=== PATIENT | male | born 2000 | race Hispanic/Latino ===

== ENCOUNTER 2019-12-09 17:27 | Emergency (ER) | payer OTHER ==
[2019-12-09] MEDS ORDERED: KETOROLAC TROMETHAMINE 60 MG/2 ML VIAL ONE (17:42)
[2019-12-09] MEDS ORDERED: DEXAMETHASONE SOD PHOSPHATE 4 MG/ML 1ML VIAL ONE (18:06)
== END 2019-12-09 19:11 | disposition home or self-care (01) ==
LOC: EDH 17:27
DX: J02.9 Acute pharyngitis, unspecified (principal); Z88.0 Allergy status to penicillin
CPT/HCPCS: 87880; 96372 ×2; 99284; J1100; J1885

== ENCOUNTER 2020-10-08 10:13 | Emergency (ER) | payer OTHER ==
[~2020-10-08] VITALS: Ht 172.7 cm; Wt 63.5 kg
[2020-10-08 10:15] VITALS: BP 125/78
[2020-10-08 10:16] VITALS: BP 125/78
[2020-10-08] MEDS ORDERED: LIDOCAINE HCL 2% VISCOUS 15 ML UDCUP ONE (12:21)
[2020-10-08] MEDS ORDERED: ONDANSETRON 4MG TABLET PO ONE (12:30)
[2020-10-08] MEDS ORDERED: DICYCLOMINE 20MG (10MG/ML) AMP IM ONE (12:30)
[2020-10-08] MEDS ORDERED: MAG/ALUM/SIMETH 30 ML UDCUP PO ONE (12:30)
[2020-10-08] MEDS ORDERED: FAMOTIDINE 20MG TAB PO ONE (12:30)
[2020-10-08 13:28] LABS: EOSINOPHILS % (AUTO) 0.2 % (0.0-8.0); HEMATOCRIT 44.9 % (42-54); LYMPHOCYTES % (AUTO) 34.8 % (21.0-51.0); MEAN CORPUSCULAR HEMOGLOBIN 27.8 pg (27.0-33.0); MEAN CORPUSCULAR HGB CONC 32.7 g/dL (32.0-36.0); MONOCYTES % (AUTO) 10.2 % (3.0-13.0); NEUTROPHILS % (AUTO) 54.8 % (40.0-77.0); PLATELET COUNT (AUTO) 132 K/uL (130-400); RED BLOOD CELL COUNT(AUTO) 5.28 MIL/uL (4.50-6.20); RED CELL DISTRIBUTION WIDTH 11.8 % (11.0-15.5); WHITE BLOOD COUNT (AUTO) 4.1 K/uL (4.8-10.8)
[2020-10-08 13:42] LABS: CREATININE 0.7 mg/dL (0.5-1.5); POTASSIUM 3.5 mmol/L (3.5-5.1)
[2020-10-08 13:44] LABS: ALBUMIN 4.1 g/dL (3.5-5.0); BILIRUBIN,TOTAL 0.2 mg/dL (0.2-1.0); TOTAL PROTEIN, SERUM 8.2 g/dL (6.0-8.3)
[2020-10-08 14:02] LABS: APPEARANCE,URINE Clear (CLEAR); BILIRUBIN,URINE Negative (NEGATIVE); COLOR,URINE Yellow (YELLOW); GLUCOSE, URINE (UA) Negative (NEGATIVE); KETONES,URINE 15 mg/dL (NEGATIVE); LEUKOCYTE ESTERASE ,URINE Negative (NEGATIVE); NITRATE,URINE Negative (NEGATIVE); OCCULT BLOOD,URINE Negative (NEGATIVE); PROTEIN,URINE POS 1+ mg/dL (NEGATIVE)
[2020-10-08 14:55] LABS: BACTERIA,URINE Few /HPF (None Seen); MUCUS,URINE Few LPF (None Seen); RBC,URINE 0-1 /HPF (0-1); SQUAMOUS EPITHELIAL CELL,UR Rare /HPF (0-2)
[2020-10-08] MEDS ORDERED: LIDOCAINE HCL-MPF 1% 2ML VIAL ONE (15:14)
[2020-10-08] MEDS ORDERED: ONDA4TAB10 PO (15:17)
[2020-10-08] MEDS ORDERED: FAMO-136 PO (15:17)
[2020-10-08] MEDS ORDERED: CEPH500B PO (15:17)
[2020-10-08] MEDS ORDERED: DICY20TA2 PO (15:17)
[2020-10-08] MEDS ORDERED: CEFTRIAXONE 1G VIAL IM ONE (15:30)
== END 2020-10-08 15:22 | disposition home or self-care (01) ==
LOC: EDH 10:13
DX: K29.70 Gastritis, unspecified, without bleeding (principal); N39.0 Urinary tract infection, site not specified; Z79.899 Other long term (current) drug therapy; Z88.0 Allergy status to penicillin
CPT/HCPCS: 36415; 80053; 81001; 83690; 85025; 96372 ×2; 99284; J0500; J0696; J3490; Q0162